=== PATIENT | male | born 2005 | race African-American/Black ===

== ENCOUNTER 2023-12-17 14:10 | Emergency (ER) | payer BC, SELFPAY ==
[2023-12-17 14:14] VITALS: BP 130/79
--- NOTE | 2023-12-17 15:53 | ED.GENMED ---
History of Present Illness
<Swapna Douglass PA-C - Last Filed: 12/17/23 21:06>
General
Chief Complaint: Abdominal Symptoms
Source: patient
Exam Limitations: none
Time Seen by Provider: 12/17/23 15:52
Nursing documentation reviewed up to this point in time: agreed with
Travel History
Have you had any contact with someone who has COVID-19?: No
Do you have any symptoms of coronavirus? Fever > 100 degrees, chills, cough, shortness of breath, sore throat, loss of taste or smell, muscle aches, or headache?: No
History of Present Illness
History of Present Illness:
18-year-old male with no past medical history presenting emergency department today with right-sided groin pain and abdominal pain x1 month. Patient states that his pain has not been getting particularly worse, however it has been persistent. He saw
his primary care provider recently who felt a 'bump ' on his groin on exam and his provider was concerned about a possible hernia. The physician ordered an outpatient CT scan to be done on December 22. Patient states that his pain has not been
getting worse, however his primary care provider advised him to go to the emergency department should he experience penile discharge. Patient states that he started having penile discharge that started today. Patient does not have any burning with
urination, penile pain. Patient states that he is sexually active, and does not use protection, however he only has 1 partner. Patient denies any fevers or chills.
Review of Systems
<Swapna Douglass PA-C - Last Filed: 12/17/23 21:06>
Review of Systems
All Other Systems: ROS reviewed and negative except as documented in HPI and ROS
Phy Exam
<Swapna Douglass PA-C - Last Filed: 12/17/23 21:06>
Physical Exam
Physical Exam:
Vitals: Vital signs are stable
General: Patient is well-appearing in no acute distress
Skin: Warm and dry, no rashes or lesions
Head: Atraumatic, normocephalic
Cardiac: Regular rate and rhythm, no murmurs
Pulm: Normal respiratory effort
Abdomen: Abdomen is soft nontender to palpation, no palpable mass, no organomegaly.
Genitourinary: Patient is circumcised, no urethral drainage. No penile rashes or lesions. No testicular pain on palpation, no palpable masses. No palpable bulge or mass in bilateral inguinal canal. Mild discomfort to palpation of right inguinal
canal.
Neuro: AAOx3.
Course
<Swapna Douglass PA-C - Last Filed: 12/17/23 21:06>
Orders/Labs/Results
Orders:
Orders
12/17/23 16:17
Complete Blood Count/With Diff Urgent
Comprehensive Metabolic Panel Urgent
12/17/23 16:20
Urinalysis Reflex To Culture Urgent
Date Specimen was Collected: 12/17/23
Time Specimen was Collected: 16:16
Urine Microscopic Reflex Cult Urgent
Chlamydia/GC by PCR Urgent
ELDA Source: Urine
Specimen Description:
Source:: URINE
Date Specimen was Collected: 12/17/23
Time Specimen was Collected: 16:16
Urine Culture Urgent
ELDA Source: U
Specimen Description:
Date Specimen was Collected: 12/17/23
Time Specimen was Collected: 16:16
12/17/23 17:37
Ceftriaxone Sodium [Rocephin] 500 mg IM NOW STA
12/17/23 17:40
Doxycycline [Vibramycin] 100 mg PO NOW STA
12/17/23 17:45
Sterile Water [Sterile Water For Injection] 10 ml .ROUTE .[facility]
Abnormal Lab Results
12/17/23 12/17/23
16:17 16:20
Absolute Neuts (auto) 7.4 H 10^3/uL
(1.4-6.5)
Neutrophils % 79.3 H %
(42.2-75.2)
Lymphocytes % 16.0 L %
(20.5-51.1)
Glucose 101 H mg/dl
(70-99)
Urine Ketones Trace A
(Negative)
Ur Occult Blood Reflex 1+ A
(Negative)
Urine RBC 7-10 A /HPF
(0-2)
Urine Bacteria (Reflex) Moderate A
(Negative)
12/17/23 16:17
12/17/23 16:17
Vital Signs
Initial and Last Documented VS:
Initial Vital Signs
Temp Pulse Resp BP Pulse Ox
98.8 F 75 16 130/79 98
12/17/23 14:14 12/17/23 14:14 12/17/23 14:14 12/17/23 14:14 12/17/23 14:14
Last Documented Vital Signs
Temp Pulse Resp BP Pulse Ox
98.8 F 84 16 126/74 98
12/17/23 14:14 12/17/23 18:16 12/17/23 18:16 12/17/23 18:16 12/17/23 14:14
<Manolo Pierre MD - Last Filed: 12/17/23 21:38>
Orders/Labs/Results
Orders:
Orders
12/17/23 16:17
Complete Blood Count/With Diff Urgent
Comprehensive Metabolic Panel Urgent
12/17/23 16:20
Urinalysis Reflex To Culture Urgent
Date Specimen was Collected: 12/17/23
Time Specimen was Collected: 16:16
Urine Microscopic Reflex Cult Urgent
Chlamydia/GC by PCR Urgent
ELDA Source: Urine
Specimen Description:
Source:: URINE
Date Specimen was Collected: 12/17/23
Time Specimen was Collected: 16:16
Urine Culture Urgent
ELDA Source: U
Specimen Description:
Date Specimen was Collected: 12/17/23
Time Specimen was Collected: 16:16
12/17/23 17:37
Ceftriaxone Sodium [Rocephin] 500 mg IM NOW STA
12/17/23 17:40
Doxycycline [Vibramycin] 100 mg PO NOW STA
12/17/23 17:45
Sterile Water [Sterile Water For Injection] 10 ml .ROUTE .[facility]
Abnormal Lab Results
12/17/23 12/17/23
16:17 16:20
Absolute Neuts (auto) 7.4 H 10^3/uL
(1.4-6.5)
Neutrophils % 79.3 H %
(42.2-75.2)
Lymphocytes % 16.0 L %
(20.5-51.1)
Glucose 101 H mg/dl
(70-99)
Urine Ketones Trace A
(Negative)
Ur Occult Blood Reflex 1+ A
(Negative)
Urine RBC 7-10 A /HPF
(0-2)
Urine Bacteria (Reflex) Moderate A
(Negative)
12/17/23 16:17
12/17/23 16:17
Vital Signs
Initial and Last Documented VS:
Initial Vital Signs
Temp Pulse Resp BP Pulse Ox
98.8 F 75 16 130/79 98
12/17/23 14:14 12/17/23 14:14 12/17/23 14:14 12/17/23 14:14 12/17/23 14:14
Last Documented Vital Signs
Temp Pulse Resp BP Pulse Ox
98.8 F 84 16 126/74 98
12/17/23 14:14 12/17/23 18:16 12/17/23 18:16 12/17/23 18:16 12/17/23 14:14
Yuridialt;KOMAL Montaño Last Filed: 12/17/23 21:06>
MDM/Problems Addressed
Differential Diagnosis Includes:
Differentials include inguinal hernia, incarcerated hernia, sports hernia, musculoskeletal sprain/strain, appendicitis
MDM/Problems Addressed:
abdominal pain
groin pain
Chronic conditions affecting care:
n/a
Chronic conditions affecting care: Asthma
Acute Exacerbation and/or Progression of Chronic Illness:
n/a
<Swapna Douglass PA-C - Last Filed: 12/17/23 21:06>
*Critical Care Note
Total Time (30-74mins, 75-104mins- exclusive of procedures): Not Applicable
Data Reviewed
Review of Other/Old Records Reveals: Records (reviewed previous records from 01/31/2023, )
<Swapna Douglass PA-C - Last Filed: 12/17/23 21:06>
Patient Management
Escalation/DeEscalation of care consider admission/obs:
18-year-old male with no past medical history presenting emergency department today with right-sided groin pain and abdominal pain x1 month. Patient states that his pain has not been getting particularly worse, however it has been persistent.
Patient is afebrile, not in significant pain. Patient's pain is not worsened since it started. On exam, patient has no testicular pain palpation, normal testicular lie, no palpable mass in inguinal canal, mild tenderness palpation of the right
inguinal canal. Based on patient's physical exam and history, I am not concerned about incarcerated inguinal hernia. No CT indicated today at this time. Patient has a follow-up CT in 5 days. This is appropriate for follow-up. Patient has penile
discharge that started today. Patient been having unprotected sex. Patient denies dysuria, fevers or chills. Urinalysis not show obvious infection, GC chlamydia testing pending. Considering patient symptoms, will treat with doxycycline and
ceftriaxone. Patient will follow-up with his primary and will get CAT scan scheduled.
ED Attending Note
<Swapna Douglass PA-C - Last Filed: 12/17/23 21:06>
-
Portions of this chart may have been created with voice recognition software.� Occasional wrong word or��sound alike� substitutions may have occurred due to the inherent limitations of voice recognition software.
<Manolo Pierre MD - Last Filed: 12/17/23 21:38>
ED Attending Note
Patient seen and examined by attending physician: Yes
I performed the substantive portion of visit, reviewed & personally made and approve the management plan that is documented in note by myself or DARBY.: Yes
ED Attending Note:
Primarily here for penile discharge that was occurred today after urinating. He is sexually active. Ongoing mild right flank pain that has had for over a month. This has been stable. No fever no vomiting no change in bowels.
On exam patient is nontoxic in no distress. No CVA tenderness. Abdomen is nontender. No hernia. Testicles normal. Penis normal. No rash.
I did offer CT today for this ongoing pain the patient has had although this has been stable for a month and a half. Family and patient do not want to wait which is reasonable. Highly doubt acute surgical abdomen. As for the discharge that I feel
is likely unrelated, we will cover her with antibiotics for a urethritis pending urine GC and chlamydia.
Discharge Plan
Departure
Patient Disposition: Home (Routine Discharge)
Date of Disposition: 12/17/23
Time of Disposition: 17:47
Patient with high blood pressure during this ER visit?: Yes
Condition: Good
Discharge Problem:
Groin pain
Instructions: Sexually-Transmitted Diseases (DC), Abdominal Pain, BLOOD PRESSURE
Prescriptions:
New
doxycycline hyclate 100 mg tablet
100 mg PO BID 7 Days Qty: 14 0RF
Referrals:
Luisa Fuchs MD [Family Provider] -
Activity Restrictions/Additional Instructions:
We have sent an antibiotic called Doxycycline to your pharmacy. Starting tomorrow, please take 1 tablet twice a day for 7 days.
Please return emergency department should you have persistent severe symptoms, fevers or chills, have increasing pain, or other concerning signs or symptoms.
Please follow-up with your primary care provider and have your CT scan done.
Interventions
Interventions:
*Risk Screen - Suicide Last Done: 12/17/23 16:08
*General Assessment Last Done: 12/17/23 16:08
*Neglect/Abuse Screening Last Done: 12/17/23 16:08
ED- Fall Risk Assessment Last Done: 12/17/23 16:08
*ED COVID-19 Vaccine History Last Done: 12/17/23 14:14
*Nursing Disposition Last Done: 12/17/23 18:16
EI-Lfawgw-Tmaaekcmxp Assessment Last Done: 12/17/23 16:08
Discharge Date and Time
Discharge Date/Time: 12/17/23 18:17
[2023-12-17 16:35] LABS: % Basophils 0.2 % (0-2); % Immature Granulocytes 0.2 % (0-0.5); % Monocytes 4.3 % (1.7-9.3); % Neutrophils 79.3 % (42.2-75.2); Absolute Lymphocytes 1.5 10^3/uL (1.2-3.4); Absolute Monocytes 0.4 10^3/uL (0.1-0.6); Absolute Neutrophils 7.4 10^3/uL (1.4-6.5); Hematocrit 46.9 % (39.0-52.0); Mean Corp Hgb Conc. 34.1 g/dL (33.0-37.0); Mean Corpuscular Hgb 28.9 pg (27.0-31.0); Mean Corpuscular Volume 84.8 fL (80.0-94.0); Mean Platelet Volume 9.8 fL (7.4-10.4); Nucleated Red Blood Cells % 0 % (-); Platelet Count 258 10^3/uL (130-400); Red Blood Cell Count 5.53 10^6/uL (4.70-6.10); Red Cell Dist. Width 13.4 % (11.5-14.5); White Blood Cell Count 9.3 10^3/uL (4.8-10.8)
[2023-12-17 16:49] LABS: ALT (SGPT) 18 U/L (0-50); AST (SGOT) 23 U/L (17-59); Alkaline Phosphatase 87 U/L (38-126); Blood Urea Nitrogen 19 mg/dl (9-20); Calcium 9.7 mg/dl (8.4-10.2); Carbon Dioxide 24 mmol/L (22-30); Chloride 106 mmol/L (98-107); Glucose 101 mg/dl (70-99); Potassium 4.2 mmol/L (3.5-5.1); Sodium 138 mmol/L (135-145); Total Bilirubin 0.9 mg/dl (0.2-1.3); eGFR > 60.00
[2023-12-17 17:41] LABS: Urine Albumin Trace (Neg - Trace); Urine Bilirubin Negative (Negative); Urine Character Slightly Cloudy (Clear); Urine Color Yellow; Urine Glucose Negative (Negative); Urine Ketone Trace (Negative); Urine Leukocyte Negative (Negative); Urine Nitrite Negative (Negative); Urine Occult Blood 1+ (Negative); Urine Specific Gravity 1.015 (<1.030); Urine Urobilinogen Negative (Neg - 1+)
[2023-12-17] MEDS: VIBRAMYCIN 100 MG PO (17:48)
[2023-12-17] MEDS: ROCEPHIN 500 MG IM (17:52)
[2023-12-17 18:00] LABS: Urine Mucus Few; Urine Squamous Cell 0-2 /LPF (Few)
[2023-12-17 18:01] LABS: Urine Bacteria Moderate (Negative); Urine White Cell 0-2 /HPF (0-5)
[2023-12-17 18:16] VITALS: BP 126/74
== END 2023-12-17 18:17 | disposition home or self-care (01) ==
LOC: EMR 14:10
PROVIDERS: Physician Assistant; EMERGENCY PHYSICIAN Emergency Medicine; FAMILY PHYSICIAN Emergency Medicine
DX: R10.31 Right lower quadrant pain (principal); R10.2 Pelvic and perineal pain; R36.9 Urethral discharge, unspecified; J45.909 Unspecified asthma, uncomplicated
CPT/HCPCS: 99284; 96372; 80053; 81003; 81015; 85025; 87086; 87491; 87591

== ENCOUNTER → 2024-01-02 14:57 | Outpatient (REF) | payer BC, SELFPAY | LOC: HWRAD 14:57 | PROVIDERS: ATTENDING PHYSICIAN Emergency Medicine | DX: K40.90 Unilateral inguinal hernia, without obstruction or gangrene, not specified as recurrent (principal) | CPT/HCPCS: 74177; Q9967 ==

== ENCOUNTER 2024-04-06 08:03 | Day surgery (SDC) | payer BC, SELFPAY ==
[2024-04-06] VITALS (8 sets, daily range): BP systolic 112–125; BP diastolic 66–79; BMI 21.3
[2024-04-06] MEDS: NORMOSOL-R 1000 IV (12:07)
[2024-04-06] MEDS: Pyridium 200 MG PO (15:35)
== END 2024-04-06 16:30 | disposition home or self-care (01) ==
LOC: SDS 08:03
PROVIDERS: ATTENDING PHYSICIAN Urology
DX: N30.81 Other cystitis with hematuria (principal); R31.29 Other microscopic hematuria; R10.9 Unspecified abdominal pain
CPT/HCPCS: 52332; 52204; 52351; 88305; 74420; 76000; A4300; C1769; C2617

== ENCOUNTER 2024-05-18 06:26 | Day surgery (SDC) | payer BC, SELFPAY ==
[2024-05-18] VITALS (9 sets, daily range): BP systolic 108–127; BP diastolic 67–78; BMI 21.3
[2024-05-18] MEDS: NORMOSOL-R/PLASMALYTE-A 1000 IV (08:02)
[2024-05-18] MEDS: DITROPAN 5 MG PO (11:53)
[2024-05-18] MEDS: Pyridium 200 MG PO (11:53)
== END 2024-05-18 15:02 | disposition home or self-care (01) ==
LOC: SDS 06:26
PROVIDERS: ATTENDING PHYSICIAN Urology
DX: N30.80 Other cystitis without hematuria (principal)
CPT/HCPCS: 52235; 52332; 88307; 74018; 76000; C1769; C2617

== ENCOUNTER → 2025-01-23 08:29 | Outpatient (REF) | payer BC, SELFPAY ==
[2025-01-23 10:04] LABS: % Basophils 0.4 % (0-2); % Eosinophils 0.9 % (0-6); % Immature Granulocytes 0.2 % (0-0.5); % Lymphocytes 20.1 % (20.5-51.1); % Monocytes 9.1 % (1.7-9.3); % Neutrophils 69.3 % (42.2-75.2); Absolute Eosinophils 0.1 10^3/uL (0-0.7); Absolute Lymphocytes 1.1 10^3/uL (1.2-3.4); Absolute Monocytes 0.5 10^3/uL (0.1-0.6); Absolute Neutrophils 3.9 10^3/uL (1.4-6.5); Hematocrit 48.8 % (39.0-52.0); Hemoglobin 16.7 g/dL (13.0-18.0); Mean Corp Hgb Conc. 34.2 g/dL (33.0-37.0); Mean Corpuscular Hgb 30.2 pg (27.0-31.0); Mean Corpuscular Volume 88.2 fL (80.0-94.0); Mean Platelet Volume 10.3 fL (7.4-10.4); Nucleated Red Blood Cells % 0 % (-); Platelet Count 268 10^3/uL (130-400); Red Blood Cell Count 5.53 10^6/uL (4.70-6.10); Red Cell Dist. Width 13.5 % (11.5-14.5); White Blood Cell Count 5.6 10^3/uL (4.8-10.8)
[2025-01-23 10:41] LABS: Glycohemoglobin (HgbA1c) 5.5 % (4.0-5.6)
[2025-01-23 10:58] LABS: TSH Reflex To Free T4 0.15 uIU/ml (0.47-4.68)
[2025-01-23 11:28] LABS: Free T4 1.15 ng/dl (0.78-2.19)
[2025-01-23 11:50] LABS: ALT (SGPT) 19 U/L (0-50); AST (SGOT) 21 U/L (17-59); Albumin 4.5 g/dl (3.5-5.0); Alkaline Phosphatase 81 U/L (38-126); Blood Urea Nitrogen 16 mg/dl (9-20); Calcium 9.8 mg/dl (8.4-10.2); Carbon Dioxide 29 mmol/L (22-30); Chloride 101 mmol/L (98-107); Glucose 93 mg/dl (70-99); HDL Cholesterol 77 mg/dl; LDL Cholesterol, Calculated 58 mg/dl; Potassium 4.7 mmol/L (3.5-5.1); Sodium 141 mmol/L (135-145); Total Bilirubin 0.9 mg/dl (0.2-1.3); Total Cholesterol 146 mg/dl (50-199); Total Protein 7.4 g/dl (6.3-8.2); Triglyceride 59 mg/dl (10-149); Very Low Density Lipoprotein 11 mg/dl (0-30); eGFR > 60.00
[2025-01-23 23:46] LABS: IgA 111 mg/dl (70-400)
[2025-01-24 16:45] LABS: Endomysial IgA Antibody Titer <1:10 (<1:10)
== END ==
LOC: REG 08:29
PROVIDERS: ATTENDING PHYSICIAN Family Medicine; FAMILY PHYSICIAN Nurse Practitioner Family
DX: R68.3 Clubbing of fingers (principal); M20.5X1 Other deformities of toe(s) (acquired), right foot; M20.5X2 Other deformities of toe(s) (acquired), left foot; R10.13 Epigastric pain; Z13.220 Encounter for screening for lipoid disorders; Z13.29 Encounter for screening for other suspected endocrine disorder; Z13.1 Encounter for screening for diabetes mellitus; Z13.0 Encounter for screening for diseases of the blood and blood-forming organs and certain disorders involving the immune mechanism
CPT/HCPCS: 36415; 80053; 80061; 81220; 82784; 83036; 83516; 84439; 84443; 85025; 86231

== ENCOUNTER 2025-09-07 01:15 | Emergency (ER) | payer BC, SELFPAY ==
[2025-09-07 01:19] VITALS: BP 146/111
--- NOTE | 2025-09-07 02:47 | ED.GENMED ---
History of Present Illness
General
Chief Complaint: Crisis Evaluation
Source: patient and other (Rubin posey)
Exam Limitations: none
Time Seen by Provider: 09/07/25 02:09
Nursing documentation reviewed up to this point in time: agreed with
History of Present Illness
History of Present Illness:
HISTORY OF PRESENT ILLNESS
The patient is a 20-year-old male with a history of anxiety, had been taking aripiprazole and buspirone about a year and a half ago. The medications were initially effective but were discontinued due to loss of contact with the psychiatrist. He
admits that Abilify and BuSpar were helpful for his anxiety issues but had poor side effects, most notably the patient experienced a 'super flat' feeling. Feeling dull, a lack of emotion. Other than BuSpar and Abilify patient has not trialed any
other medications. He discontinued these medicines when they ran out approximately 6 months ago. The patient has not tried selective serotonin reuptake inhibitors (SSRIs) previously.
He notes increased anxiety over the past several months and has resumed counseling 1 month ago attending twice weekly. He has been attempting to establish with a new psychiatrist.
He is also concerned with chronically poor sleep, with approximately two to three hours of nighttime sleep as the patient often naps during the day, affecting nighttime rest. The patient describes feeling very disconnected from life, purnima to viewing
the world behind a glass pane, leading to engagement difficulties. The patient reports these feelings have impacted personal relationships, as indicated by the fianc� needing to draw the patients attention often.
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 Rarely misses work days.
No history of alcohol or drug use. Adamantly denies suicidal thoughts or plan.
The patient denies experiencing auditory or visual hallucinations but shares a family history of bipolar disorder, as noted in the mother. The patient has agreed to try an SSRI, escitalopram, starting with 5 mg daily for six days, then increasing to
10 mg daily, targeting both anxiety and feelings of disconnection.
He has brought himself to the ED primarily hoping to just talk to somebody.
He has been evaluated by Rubin posey and has been provided with outpatient referral information to establish with a new psychiatrist.
He is agreeable to resume medications but is somewhat hesitant to resume Abilify and BuSpar due to side effects noted above.
He is willing to trial an SSRI.
He does follow with a local PCP. Admits that he has not touch base with his PCP with recent anxiety issues.
Past History
Past History
ED Past Medical History: Asthma, Psychiatric and Other (Migraine headaches)
ED Past Surgical History: Orthopedic and Urological (Cystoscopy, bladder biopsy April 2024)
Social History
Tobacco: Non-smoker
Alcohol: None
Drug: Marijuana
Personal: Single
Living: with family
Employment: Employed
Family History
Family History: Other (Mother with history of bipolar disorder)
Phy Exam
Physical Exam
Physical Exam:
GENERAL: 20-year-old gentleman appears his stated age, bright and alert, pleasant, easily communicative, in no acute distress.
EYE: anicteric
NECK: Supple, nontender, no meningismus, no significant adenopathy.
ENT: oral mucosa is moist. No rhinorrhea.
CARDIAC: Regular rate and rhythm. no murmur.
LUNGS: Clear breath sounds bilaterally, no acute respiratory distress, no wheezes/rales/rhonchi
NEUROLOGICAL: Alert and oriented x3, no focal neuro deficits. Gait is taedo and steady.
SKIN: Warm and dry, normal color, skin intact. No rash.
MUSCULOSKELETAL: No C/C/E. peripheral pulses are full and equal b/l. No palpable tenderness.
PSYCH: Admits to ongoing anxiety, poor sleep. Goal-directed, future directed. Normal speech pattern. Fair insight and judgment.
Course
Orders/Labs/Results
Orders:
Orders
09/07/25 01:36
Crisis Consult Urgent
Reason for Consult: pt feels his anxiety is out of control
Vital Signs
Initial and Last Documented VS:
Initial Vital Signs
Temp Pulse Resp BP Pulse Ox
98.0 F 108 20 146/111 98
09/07/25 01:19 09/07/25 01:19 09/07/25 01:19 09/07/25 01:19 09/07/25 01:19
Last Documented Vital Signs
Temp Pulse Resp BP Pulse Ox
98.0 F 108 20 146/111 98
09/07/25 01:19 09/07/25 01:19 09/07/25 01:19 09/07/25 01:19 09/07/25 01:19
MDM/Problems Addressed
Differential Diagnosis Includes:
DIFFERENTIAL DIAGNOSIS
The Differential Diagnosis includes, in no particular order and is not limited to:
1. Generalized Anxiety Disorder
2. Major Depressive Disorder
3. Adjustment Disorder
4. Sleep-Wake Disorder
5. Bipolar Disorder (considering family history)
6. Dysthymic Disorder
7. Substance-Induced Mood Disorder
8. Attention Deficit Hyperactivity Disorder (inattentive type)
9. Persistent Depressive Disorder
10. Schizophrenia Spectrum Disorder (for completeness, although less likely)
MDM/Problems Addressed:
Acute exacerbation of anxiety disorder
Sleep disruption, chronic insomnia with daytime napping
Feelings of disconnection/detachment
PLAN
1. Initiate escitalopram: Start with 5 mg daily for six days, then increase to 10 mg daily.
2. Discussed the importance of establishing a healthy sleep routine: Remaining awake during the day, reducing naps, and decreasing evening screen time.
3. Referral made to psychiatry for further consultation and management.
4. Encouraged to engage in daily activities to combat disconnection and improve day-to-day engagement.
5. Prompt follow-up with PCP for recheck.
Chronic conditions affecting care: Psychiatric illness
Acute Exacerbation and/or Progression of Chronic Illness: Psychiatric illness
*Pulse Oximetry
SaO2: 98
Oxygen Mode of Delivery: Room air
Patient hypoxic: no
*Critical Care Note
Total Time (30-74mins, 75-104mins- exclusive of procedures): Not Applicable
ED Attending Note
-
Portions of this chart may have been created with voice recognition software.� Occasional wrong word or��sound alike� substitutions may have occurred due to the inherent limitations of voice recognition software.
Discharge Plan
Departure
Patient Disposition: Home (Routine Discharge)
Date of Disposition: 09/07/25
Time of Disposition: 02:51
Patient with high blood pressure during this ER visit?: No
Condition: Good
Discharge Problem:
Generalized anxiety disorder, Insomnia
Instructions: Generalized anxiety disorder, Good sleep hygiene
Prescriptions:
New
escitalopram oxalate [Lexapro] 10 mg tablet
10 mg PO DAILY Qty: 30 1RF
Discontinued
buspirone 10 mg Tablet
10 mg PO TID
aripiprazole 5 mg Tablet
5 mg PO HS
No Action
albuterol sulfate 90 mcg/actuation Hfa Aerosol Inhaler
2 inh INHALATION PRN PRN (Reason: SOB, Wheezes)
Referrals:
Angelique Wasserman MD [Family Provider, Family Practice] - Call in 1-3 days for appt
Activity Restrictions/Additional Instructions:
Start Lexapro, taking 1/2 tablet daily for the first 6 days then increase to 1 tablet daily.
Try to stay awake during the day, avoid naps during the day and then plan to go to bed at a regular time such as 10 PM and try to maintain this on a regular basis.
Follow-up with your primary care physician and follow-up with psychiatry referral as provided by Rubin posey.
Interventions
Interventions:
*Risk Screen - Suicide Last Done: 09/07/25 01:19
*General Assessment Last Done: 09/07/25 02:21
*Neglect/Abuse Screening Last Done: 09/07/25 01:19
*ED COVID-19 Vaccine History Last Done: 09/07/25 01:19
*ED Influenza Vaccine History Last Done: 09/07/25 01:19
[facility] Fall Risk Assessment Tool Last Done: 09/07/25 01:16
ED-Psychological Assessment Last Done: 09/07/25 02:19
Discharge Date and Time
Print Language: HEBREW
== END 2025-09-07 03:12 | disposition home or self-care (01) ==
LOC: EMR 01:15
PROVIDERS: EMERGENCY PHYSICIAN Emergency Medicine; FAMILY PHYSICIAN Family Medicine
DX: F41.1 Generalized anxiety disorder (principal); G47.00 Insomnia, unspecified; J45.909 Unspecified asthma, uncomplicated; Z79.899 Other long term (current) drug therapy
CPT/HCPCS: 99283